=== PATIENT | male | born 1995 | race Caucasian/White ===

== ENCOUNTER 2016-07-22 12:24 | Day surgery (SDC) | payer BC ==
[2016-07-22] VITALS (7 sets, daily range): BP systolic 110–149; BP diastolic 72–88; PULSE 62–121; TEMP 98.2
[~2016-07-22] VITALS: Ht 175.3 cm; Wt 76.4 kg
[2016-07-22] MEDS ORDERED: ASPI325T6 PO (21:32)
[2016-07-22] MEDS ORDERED: ROXICODONE 55 MG/TAB PO (21:33)
[2016-07-23 00:17] VITALS: BP 102/80; PULSE 80
[2016-07-23 05:46] VITALS: BP 98/49; PULSE 81; TEMP 99.3
[2016-07-23] MEDS ORDERED: ZOFRAN 4MG T4 MG/TAB PO (07:47)
[2016-07-23] MEDS ORDERED: PERCOCET 325 MG1 TA2 PO (07:48)
[2016-07-23] MEDS ORDERED: COLACE 100100 MG/CAP PO (07:48)
[2016-07-23] MEDS ORDERED: NAPROSYN500 MG PO (07:49)
== END 2016-07-23 08:45 | disposition home or self-care (01) ==
LOC: SDCO 12:24 → SURG 18:00 → SDCO 07-23 08:45
DX: S83.512A Sprain of anterior cruciate ligament of left knee, initial encounter (principal); S83.422A Sprain of lateral collateral ligament of left knee, initial encounter; X58.XXXA Exposure to other specified factors, initial encounter
CPT/HCPCS: OP; A9284; C1713; J0171; J0690; J1100; J1170; J1885; J2250; J2270; J2405; J2704; J2795; J3010; J7120